=== PATIENT | male | born 1960 | race American Indian/Alaskan Native ===

== ENCOUNTER 2019-07-09 10:03 | Observation (INO) | payer OTHER ==
[2019-07-09] MEDS ORDERED: ASPIRIN PO ONE (10:10)
[2019-07-09 10:43] LABS: Basophils # (Auto) 0.1 K/mm3 (0.0-0.1); Basophils % (Auto) 0.9 % (0.0-1.8); Eosinophils # (Auto) 0.2 K/mm3 (0.0-0.4); Eosinophils % (Auto) 3.2 % (0.0-4.3); Hematocrit 47.2 % (35.5-45.6); Hemoglobin 16.1 gm/dl (11.8-15.2); Lymphocytes # (Auto) 2.3 K/mm3 (1.2-5.4); Mean Corpuscular HGB Conc 34 % (32-34); Mean Corpuscular Volume 95 fl (84-94); Monocytes # (Auto) 0.6 K/mm3 (0.0-0.8); Monocytes % (Auto) 8.1 % (0.0-7.3); Platelet Count 213 K/mm3 (140-440); Red Blood Count 4.95 M/mm3 (3.65-5.03); Red Cell Distribution Width 14.9 % (13.2-15.2)
--- NOTE | 2019-07-09 10:51 | XRay Report ---
CHEST 2 VIEWS INDICATION: Chest Pain. COMPARISON: None FINDINGS: Support devices: None. Heart: Within normal limits. The aorta is mildly ectatic but well defined. Lungs/pleura: No acute air space or interstitial disease. No pneumothorax. Additional findings: None. IMPRESSION: No acute findings. Signer Name: Jackson Gutierrez Jr, MD Signed: 07/09/2019 10:47 AM Workstation Name: [id number]
--- NOTE | 2019-07-09 10:52 | Emergency Department Report ---
ED Chest Pain HPI - General Chief Complaint: Chest Pain Stated Complaint: CHEST PAIN Time Seen by Provider: 07/09/19 10:34 Source: patient, EMS Mode of arrival: Wheelchair Limitations: No Limitations - History of Present Illness Initial Comments: 59-year-old male presents to the emergency department from home with complaint of some midsternal chest discomfort that has been going on since he woke up this morning around 5 AM. The pain worsens when he is moving or breathing. He denies any fever, nausea, vomiting, back pain or diaphoresis. He is a tobacco smoker but denies any illicit drug use. He has a past medical history of asthma, hypertension and migraine headaches. Patient has been out of his blood pressure medication for multiple months and presents with extremely elevated blood pressure. He says that he previously was on something that "started with a I." He does not have a primary care physician. No recent trave l or sick contacts at home. - Related Data Previous Rx's Medication Instructions Recorded Last Taken Type Aspirin [Aspirin BABY CHEW TAB] 81 mg PO QDAY #30 tab.chew 03/09/15 07/08/19 Rx Lisinopril [Zestril TAB] 20 mg PO QDAY #30 tablet 03/09/15 07/08/19 Rx Metoprolol [Lopressor TAB] 12.5 mg PO BID #60 tablet 03/09/15 07/08/19 Rx amLODIPine [Norvasc] 5 mg PO QDAY #30 tablet 03/09/15 07/08/19 Rx Amlodipine Besylate [Norvasc] 5 mg PO DAILY #30 tablet 10/31/18 07/08/19 Rx Clindamycin [Clindamycin CAP] 300 mg PO Q8H 7 Days cap 10/31/18 07/08/19 Rx HYDROcodone/APAP 5-325 [[place] 1 each PO Q4HR PRN #12 tablet 10/31/18 07/08/19 Rx 5/325] Ibuprofen [Motrin] 800 mg PO Q8HR PRN #20 tablet 10/31/18 07/08/19 Rx Allergies Allergy/AdvReac Type Severity Reaction Status Date / Time No Known Allergies Allergy Unverified 03/08/15 11:59 Heart Score - HEART Score History: Slightly suspicious EKG: Non-specific Age: 45-65 Risk factors: 1-2 risk factors Troponin: < normal limit HEART Score: 3 - Critical Actions Critical Actions: 0-3 pts:0.9-1.7%risk of adverse cardiac event.Candidate for discharge ED Review of Systems ROS: Stated complaint: CHEST PAIN Other details as noted in HPI Comment: All other systems reviewed and negative Constitutional: denies: chills, fever Eyes: denies: eye pain, vision change ENT: denies: ear pain, throat pain Respiratory: shortness of breath. denies: cough Cardiovascular: chest pain. denies: palpitations Gastrointestinal: denies: abdominal pain, vomiting Genitourinary: denies: urgency, dysuria Musculoskeletal: denies: back pain, arthralgia Skin: denies: rash, lesions Neurological: denies: headache, weakness ED Past Medical Hx - Past Medical History Hx Hypertension: Yes Hx Congestive Heart Failure: No Hx Diabetes: No Hx Headaches / Migraines: Yes (noncompliant) Hx Asthma: No Hx COPD: No - Surgical History Past Surgical History?: No - Social History Smoking Status: Current Every Day Smoker Substance Use Type: Marijuana - Medications Home Medications: Home Medications Medication Instructions Recorded Confirmed Last Taken Type Aspirin [Aspirin BABY CHEW TAB] 81 mg PO QDAY #30 tab.chew 03/09/15 07/09/19 07/08/19 Rx Lisinopril [Zestril TAB] 20 mg PO QDAY #30 tablet 03/09/15 07/09/19 07/08/19 Rx Metoprolol [Lopressor TAB] 12.5 mg PO BID #60 tablet 03/09/15 07/09/19 07/08/19 Rx amLODIPine [Norvasc] 5 mg PO QDAY #30 tablet 03/09/15 07/09/19 07/08/19 Rx Amlodipine Besylate [Norvasc] 5 mg PO DAILY #30 tablet 10/31/18 07/09/19 07/08/19 Rx Clindamycin [Clindamycin CAP] 300 mg PO Q8H 7 Days cap 10/31/18 07/09/19 07/08/19 Rx HYDROcodone/APAP 5-325 [[place] 1 each PO Q4HR PRN #12 tablet 10/31/18 07/09/19 07/08/19 Rx 5/325] Ibuprofen [Motrin] 800 mg PO Q8HR PRN #20 tablet 10/31/18 07/09/19 07/08/19 Rx ED Physical Exam - General Limitations: No Limitations - Other Other exam information: GENERAL: The patient is well-developed well-nourished. HENT: Normocephalic. Atraumatic. Patient has moist mucous membranes. EYES: Extraocular motions are intact. NECK: Supple. Trachea is midline. CHEST/LUNGS: Clear to auscultation. There is no respiratory distress noted. There is reproducible chest pain to palpation along the midsternal chest wall. No crepitus or deformity. HEART/CARDIOVASCULAR: Regular. There is no tachycardia. There is no murmur. ABDOMEN: Abdomen is soft, nontender. Patient has normal bowel sounds. There is no abdominal distention. SKIN: Skin is warm and dry. NEURO: The patient is awake, alert, and oriented. The patient is cooperative. The patient has no focal neurologic deficits. Normal speech. MUSCULOSKELETAL: There is no tenderness or deformity. There is no evidence of acute injury. ED Course Vital Signs 07/09/19 07/09/19 07/09/19 10:09 10:30 11:31 Temperature 97.8 F Pulse Rate 58 L 58 L 58 L Respiratory 18 16 Rate Blood Pressure 201/129 192/112 Blood Pressure 192/112 [Right] O2 Sat by Pulse 95 Oximetry 07/09/19 07/09/19 07/09/19 11:46 11:51 12:31 Temperature Pulse Rate 69 Respiratory 20 Rate Blood Pressure 169/101 Blood Pressure 169/101 183/87 [Right] O2 Sat by Pulse Oximetry GWEN score - Gwen Score Age > 65: (0) No Aspirin use within the Past 7 Days: (0) No 3 or more CAD Risk Factors: (0) No 2 or more Angina events in past 24 hrs: (1) Yes Known CAD with more than 50% Stenosis: (0) No Elevated Cardiac Markers: (0) No ST Deviation Greater than 0.5mm: (0) No GWEN Score: 1 ED Medical Decision Making - Lab Data Result diagrams: 07/09/19 10:29 07/09/19 10:29 - EKG Data -: EKG Interpreted by Wy EKG shows normal: sinus rhythm, axis, intervals, QRS complexes, ST-T waves (T- wave inversions to the inferior and lateral leads) Rate: bradycardia (56 bpm) - EKG Data When compared to previous EKG there are: no significant change Interpretation: unchanged when compared t (05/08/11) - Radiology Data Radiology results: image reviewed interpreted by me: Chest x-ray does not show any acute process. There are no pleural effusions, obvious pneumonia and there is no pneumothorax. - Medical Decision Making Patient woke up this morning with some midsternal chest pain. He also presents with extremely elevated blood pressure with a history of medication n oncompliance. An EKG was done that shows some T-wave inversions to the inferior and lateral leads but they're unchanged from previous. Chest x-ray did not show any acute process. Patient was given morphine, sublingual nitroglycerin, multiple doses of hydralazine. There was some improvement in the blood pressure but not much improvement in the patient's discomfort. He has a heart score of 3. He does not have any primary care physician or establish follow-up. The patient will be admitted to the hospital for further evaluation and treatment and was accepted for admission by the hospitalist, Dr. Xiao. - Differential Diagnosis VA, PE, Costochondritis, Pneumonia Critical Care Time: No Critical care attestation.: If time is entered above; I have spent that time in minutes in the direct care of this critically ill patient, excluding procedure time. ED Disposition Clinical Impression: Acute chest pain, Uncontrolled hypertension, Noncompliance with medication regimen, Acute kidney insufficiency Disposition: OP ADMIT IP TO THIS HOSP Is pt being admited?: Yes Condition: Fair Time of Disposition: 12:36
[2019-07-09] MEDS ORDERED: APRESOLINE IV ONE ×2 (10:53→11:42)
[2019-07-09 11:03] LABS: INR 1.01 (0.87-1.13); Partial Thromboplastin Time 28.1 Sec. (24.2-36.6)
[2019-07-09 11:04] LABS: BUN/Creatinine Ratio 11; Blood Urea Nitrogen 19 mg/dL (9-20); Hemolysis Index 31
[2019-07-09] MEDS ORDERED: MORPHINE IV ONE (11:16)
[2019-07-09] MEDS ORDERED: NITROSTAT SL PRN (12:31)
[2019-07-10] MEDS ORDERED: ZOFRAN IV PRN (00:10)
[2019-07-10] MEDS ORDERED: TYLENOL PO PRN (00:10)
[2019-07-10] MEDS ORDERED: REGLAN IV PRN (00:10)
[2019-07-10] MEDS ORDERED: DILAUDID IV PRN (00:10)
[2019-07-10] MEDS ORDERED: SODIUM CHLORIDE FLUSH SYRINGE 10 ML IV PRN (00:10)
--- NOTE | 2019-07-10 00:10 | History and Physical Report ---
History of Present Illness Date of examination: 07/09/19 Date of admission: 07/09/19 12:36 Chief complaint: Chest pain since 5 AM History of present illness: 59-year-old male with history of hypertension and arthritis comes in for left- sided chest pain since 5 AM. The pain worsens with movement. Chest pain is about 6 on a scale of 1-10. No diaphoresis. No palpitations. Patient also has asthma. Patient has not been taking his blood pressure medications for many months because of not having a PCP. Noncompliant. Chest pain is dull in character. No radiation. No exacerbating or relieving factors. Heart score is 3 Past Medical History Hypertension: Yes Headaches / Migraines: Yes (noncompliant) Surgical History Past Surgical History?: No Social History Smoking Status: Current Every Day Smoker Substance Use Type: Marijuana Family history htn - Medications Home Medications: Home Medications Medication Instructions Recorded Confirmed Last Taken Type Aspirin [Aspirin BABY CHEW TAB] 81 mg PO QDAY #30 tab.chew 03/09/15 07/09/19 07/08/19 Rx Lisinopril [Zestril TAB] 20 mg PO QDAY #30 tablet 03/09/15 07/09/19 07/08/19 Rx Metoprolol [Lopressor TAB] 12.5 mg PO BID #60 tablet 03/09/15 07/09/19 07/08/19 Rx amLODIPine [Norvasc] 5 mg PO QDAY #30 tablet 03/09/15 07/09/19 07/08/19 Rx Amlodipine Besylate [Norvasc] 5 mg PO DAILY #30 tablet 10/31/18 07/09/19 07/08/19 Rx Clindamycin [Clindamycin CAP] 300 mg PO Q8H 7 Days cap 10/31/18 07/09/19 07/08/19 Rx HYDROcodone/APAP 5-325 [[place] 1 each PO Q4HR PRN #12 tablet 10/31/18 07/09/19 07/08/19 Rx 5/325] Ibuprofen [Motrin] 800 mg PO Q8HR PRN #20 tablet 10/31/18 07/09/19 07/08/19 Rx Review of Systems ROS: Stated complaint: CHEST PAIN Other details as noted in HPI Comment: All other systems reviewed and negative Constitutional: denies: chills, fever Eyes: denies: eye pain, vision change ENT: denies: ear pain, throat pain Respiratory: shortness of breath. denies: cough Cardiovascular: chest pain. denies: palpitations Gastrointestinal: denies: abdominal pain, vomiting Genitourinary: denies: urgency, dysuria Musculoskeletal: denies: back pain, arthralgia Skin: denies: rash, lesions Neurological: denies: headache, weakness Medications and Allergies Allergies Allergy/AdvReac Type Severity Reaction Status Date / Time No Known Allergies Allergy Unverified 03/08/15 11:59 Home Medications Medication Instructions Recorded Confirmed Last Taken Type Aspirin [Aspirin BABY CHEW TAB] 81 mg PO QDAY #30 tab.chew 03/09/15 07/09/19 07/08/19 Rx Lisinopril [Zestril TAB] 20 mg PO QDAY #30 tablet 03/09/15 07/09/19 07/08/19 Rx Metoprolol [Lopressor TAB] 12.5 mg PO BID #60 tablet 03/09/15 07/09/19 07/08/19 Rx amLODIPine [Norvasc] 5 mg PO QDAY #30 tablet 03/09/15 07/09/19 07/08/19 Rx Amlodipine Besylate [Norvasc] 5 mg PO DAILY #30 tablet 10/31/18 07/09/19 07/08/19 Rx Clindamycin [Clindamycin CAP] 300 mg PO Q8H 7 Days cap 10/31/18 07/09/19 07/08/19 Rx HYDROcodone/APAP 5-325 [[place] 1 each PO Q4HR PRN #12 tablet 10/31/18 07/09/19 07/08/19 Rx 5/325] Ibuprofen [Motrin] 800 mg PO Q8HR PRN #20 tablet 10/31/18 07/09/19 07/08/19 Rx Active Meds: Active Medications Nitroglycerin (Nitrostat) 0.4 mg SL .Q5MIN PRN PRN Reason: Chest Pain Exam - Constitutional Vitals: Temp Pulse Resp BP Pulse Ox 98.9 F 60 18 177/99 98 07/09/19 21:59 07/09/19 21:59 07/09/19 21:59 07/09/19 21:59 07/09/19 21:03 General appearance: Present: no acute distress, well-nourished - EENT Eyes: Present: PERRL ENT: hearing intact, clear oral mucosa - Neck Neck: Present: supple, normal ROM - Respiratory Respiratory effort: normal Respiratory: bilateral: CTA - Cardiovascular Heart rate: 54 Rhythm: regular Heart Sounds: Present: S1 & S2. Absent: rub, click - Extremities Extremities: no ischemia, pulses intact, pulses symmetrical, No edema Peripheral Pulses: within normal limits - Abdominal General gastrointestinal: Present: soft, non-tender, non-distended, normal bowel sounds Male genitourinary: Present: normal - Integumentary Integumentary: Present: clear, warm, dry - Musculoskeletal Musculoskeletal: gait normal, strength equal bilaterally - Psychiatric Psychiatric: appropriate mood/affect, intact judgment & insight - Neurologic Neurologic: CNII-XII intact, moves all extremities - Allied Health Allied health notes reviewed: nursing, case management Results - Labs CBC & Chem 7: 07/09/19 10:29 07/09/19 10:29 Labs: Laboratory Last Values WBC 7.0 K/mm3 (4.5-11.0) 07/09/19 10:29 RBC 4.95 M/mm3 (3.65-5.03) 07/09/19 10:29 Hgb 16.1 gm/dl (11.8-15.2) H 07/09/19 10:29 Hct 47.2 % (35.5-45.6) H 07/09/19 10:29 MCV 95 fl (84-94) H 07/09/19 10:29 MCH 33 pg (28-32) H 07/09/19 10:29 MCHC 34 % (32-34) 07/09/19 10:29 RDW 14.9 % (13.2-15.2) 07/09/19 10:29 Plt Count 213 K/mm3 (140-440) 07/09/19 10:29 Lymph % (Auto) 33.0 % (13.4-35.0) 07/09/19 10:29 [place] % (Auto) 8.1 % (0.0-7.3) H 07/09/19 10:29 Eos % (Auto) 3.2 % (0.0-4.3) 07/09/19 10:29 Baso % (Auto) 0.9 % (0.0-1.8) 07/09/19 10:29 Lymph # 2.3 K/mm3 (1.2-5.4) 07/09/19 10:29 [place] # 0.6 K/mm3 (0.0-0.8) 07/09/19 10:29 Eos # 0.2 K/mm3 (0.0-0.4) 07/09/19 10:29 Baso # 0.1 K/mm3 (0.0-0.1) 07/09/19 10:29 Seg Neutrophils % 54.8 % (40.0-70.0) 07/09/19 10:29 Seg Neutrophils # 3.8 K/mm3 (1.8-7.7) 07/09/19 10:29 PT 13.0 Sec. (12.2-14.9) 07/09/19 10:41 INR 1.01 (0.87-1.13) 07/09/19 10:41 APTT 28.1 Sec. (24.2-36.6) 07/09/19 10:41 < 135.00 ng/mlDDU (0-234) 07/09/19 10:41 Sodium 142 mmol/L (137-145) 07/09/19 10:29 Potassium 3.7 mmol/L (3.6-5.0) 07/09/19 10:29 Chloride 104.9 mmol/L (98-107) 07/09/19 10:29 Carbon Dioxide 24 mmol/L (22-30) 07/09/19 10:29 17 mmol/L 07/09/19 10:29 BUN 19 mg/dL (9-20) 07/09/19 10:29 1.7 mg/dL (0.8-1.5) H 07/09/19 10:29 Estimated GFR 51 ml/min 07/09/19 10:29 11 % 07/09/19 10:29 Glucose 103 mg/dL (75-100) H 07/09/19 10:29 Calcium 9.0 mg/dL (8.4-10.2) 07/09/19 10:29 < 0.010 ng/mL (0.00-0.029) 07/09/19 15:11 Short CBC 07/09/19 Range/Units 10:29 WBC 7.0 (4.5-11.0) K/mm3 Hgb 16.1 H (11.8-15.2) gm/dl Hct 47.2 H (35.5-45.6) % Plt Count 213 (140-440) K/mm3 [facility] 07/09/19 10:29 Sodium 142 Potassium 3.7 Chloride 104.9 Carbon Dioxide 24 BUN 19 Creatinine 1.7 H Glucose 103 H Calcium 9.0 Cardiac Enzymes 07/09/19 07/09/19 07/09/19 Range/Units 10:29 13:49 15:11 Troponin T < 0.010 < 0.010 < 0.010 (0.00-0.029) ng/mL - Imaging and Cardiology EKG: report reviewed (sinus bradycardia heart rate of 50 for per minute, LVH by voltage criteria) Chest x-ray: report reviewed (no acute findings) Assessment and Plan Advance Directives: Yes (full code) VTE prophylaxis?: Chemical Plan of care discussed with patient/family: Yes - Patient Problems (1) Acute chest pain Current Visit: Yes Status: Acute Plan to address problem: Serial troponins Exercise stress test Cardiology consult (2) Hypertension Current Visit: Yes Status: Chronic Qualifiers: Hypertension type: essential hypertension Qualified Code(s): I10 - Essential (primary) hypertension Plan to address problem: Patient counseled about compliance Patient to be given 3 month prescriptions at the time of discharge Patient to follow-up with [facility] --- a free clinic in the community (3) Nicotine dependence Current Visit: Yes Status: Chronic Qualifiers: Nicotine product type: cigarettes Plan to address problem: Patient counseled about stopping smoking NicoDerm patch initiated (4) DVT prophylaxis Current Visit: Yes Status: Acute Plan to address problem: On Lovenox and GI prophylaxis
[2019-07-10] MEDS ORDERED: APRESOLINE IV PRN (00:22)
[2019-07-10] MEDS ORDERED: HABITROL TD ONE (00:23)
[2019-07-10] MEDS: LOPRESSOR PO SCH ×3 (06:15→22:00)
[2019-07-10] MEDS ORDERED: LEXISCAN IV ONE ×2 (09:00→09:20)
[2019-07-10] MEDS: APRESOLINE PO SCH ×3 (09:11→22:00)
[2019-07-10] MEDS: NORVASC PO SCH (11:21)
[2019-07-10] MEDS: PERCOCET 5/325 PO PRN ×2 (11:36→19:22)
[2019-07-10] MEDS: PEPCID PO SCH ×2 (11:37→22:00)
[2019-07-10] MEDS: BABY ASPIRIN PO SCH (11:37)
[2019-07-10] MEDS: ZESTRIL PO SCH (11:38)
--- NOTE | 2019-07-10 15:34 | Progress Note ---
Assessment and Plan Assessment and plan: (1) Acute chest pain Current Visit: Yes Status: Acute Plan to address problem: Serial troponins, negative Exercise stress test Cardiology consult (2) Hypertension - Uncontrolled - Added hydralazine - Will monitor (3) Nicotine dependence - counselled about cessation of smoking - Patient declined Nicoderm patch Asthma - PRN breathing treatment and o2 support (4) DVT prophylaxis On Lovenox and GI prophylaxis Disposition; will DC once BP is controlled and stress test report. History Interval history: Patient was seen and evaluated this morning, patient is complaining some shortness of breath. Chest pain resolved. Hospitalist Physical - Physical exam Narrative exam: Not in cardiopulmonary distress. The patient is obese. Vital signs as documented. Head exam is unremarkable. No scleral icterus . Neck is without jugular venous distension, thyromegaly, or carotid bruits. Lungs are clear to auscultation. Cardiac exam reveals regular rate and Rhythm. Abdominal exam reveals normal bowel sounds, no masses, no organomegaly and no aortic enlargement. Extremities are nonedematous and both femoral and pedal pulses are normal. EXHIBITS CURATOR: Alert and oriented 3. No focal weakness. - Constitutional Vitals: Temp Pulse Resp BP Pulse Ox 98.4 F 63 20 171/95 98 07/10/19 07:54 07/10/19 13:27 07/10/19 11:36 07/10/19 10:46 07/10/19 13:00 General appearance: Present: no acute distress, well-nourished Results - Labs CBC & Chem 7: 07/09/19 10:29 07/09/19 10:29 Labs: Laboratory Last Values WBC 7.0 K/mm3 (4.5-11.0) 07/09/19 10:29 RBC 4.95 M/mm3 (3.65-5.03) 07/09/19 10:29 Hgb 16.1 gm/dl (11.8-15.2) H 07/09/19 10:29 Hct 47.2 % (35.5-45.6) H 07/09/19 10:29 MCV 95 fl (84-94) H 07/09/19 10:29 MCH 33 pg (28-32) H 07/09/19 10:29 MCHC 34 % (32-34) 07/09/19 10:29 RDW 14.9 % (13.2-15.2) 07/09/19 10:29 Plt Count 213 K/mm3 (140-440) 07/09/19 10:29 Lymph % (Auto) 33.0 % (13.4-35.0) 07/09/19 10:29 [place] % (Auto) 8.1 % (0.0-7.3) H 07/09/19 10:29 Eos % (Auto) 3.2 % (0.0-4.3) 07/09/19 10:29 Baso % (Auto) 0.9 % (0.0-1.8) 07/09/19 10:29 Lymph # 2.3 K/mm3 (1.2-5.4) 07/09/19 10:29 [place] # 0.6 K/mm3 (0.0-0.8) 07/09/19 10:29 Eos # 0.2 K/mm3 (0.0-0.4) 07/09/19 10:29 Baso # 0.1 K/mm3 (0.0-0.1) 07/09/19 10:29 Seg Neutrophils % 54.8 % (40.0-70.0) 07/09/19 10:29 Seg Neutrophils # 3.8 K/mm3 (1.8-7.7) 07/09/19 10:29 PT 13.0 Sec. (12.2-14.9) 07/09/19 10:41 INR 1.01 (0.87-1.13) 07/09/19 10:41 APTT 28.1 Sec. (24.2-36.6) 07/09/19 10:41 < 135.00 ng/mlDDU (0-234) 07/09/19 10:41 Sodium 142 mmol/L (137-145) 07/09/19 10:29 Potassium 3.7 mmol/L (3.6-5.0) 07/09/19 10:29 Chloride 104.9 mmol/L (98-107) 07/09/19 10:29 Carbon Dioxide 24 mmol/L (22-30) 07/09/19 10:29 17 mmol/L 07/09/19 10:29 BUN 19 mg/dL (9-20) 07/09/19 10:29 1.7 mg/dL (0.8-1.5) H 07/09/19 10:29 Estimated GFR 51 ml/min 07/09/19 10:29 11 % 07/09/19 10:29 Glucose 103 mg/dL (75-100) H 07/09/19 10:29 5.5 % (4-6) 07/10/19 00:21 Calcium 9.0 mg/dL (8.4-10.2) 07/09/19 10:29 < 0.010 ng/mL (0.00-0.029) 07/10/19 05:40 Active Medications - Current Medications Current Medications: Generic Name Dose Route Start Last Admin Trade Name Freq PRN Reason Stop Dose Admin Acetaminophen 650 mg 07/10/19 00:10 Tylenol PO Q4H PRN Pain MILD(1-3)/Fever >100.5/JARVIS Amlodipine Besylate 10 mg 07/10/19 10:00 Norvasc PO QDAY EMIL Aspirin 81 mg 07/10/19 10:00 07/10/19 11:37 Baby Aspirin PO 81 mg QDAY EMIL Administration Enoxaparin Sodium 40 mg 07/10/19 22:00 Lovenox SUB-Q QDAY@2200 EMIL Famotidine 20 mg 07/10/19 10:00 07/10/19 11:37 Pepcid PO 20 mg BID EMIL Administration Hydralazine HCl 10 mg 07/10/19 00:22 07/10/19 08:21 Apresoline IV 10 mg Q3H PRN Administration Blood Pressure Hydralazine HCl 100 mg 07/10/19 09:00 07/10/19 14:37 Apresoline PO 100 mg TID EMIL Administration Hydromorphone HCl 0.5 mg 07/10/19 00:10 Dilaudid IV Q3H PRN Pain , Severe (7-10) Lisinopril 20 mg 07/10/19 10:00 07/10/19 11:38 Zestril PO 20 mg QDAY EMIL Administration Metoclopramide HCl 10 mg 07/10/19 00:10 Reglan IV Q6H PRN Nausea And Vomiting Metoprolol Tartrate 12.5 mg 07/10/19 01:00 07/10/19 11:37 Lopressor PO 12.5 mg BID EMIL Administration Nitroglycerin 0.4 mg 07/09/19 12:31 Nitrostat SL .Q5MIN PRN Chest Pain Ondansetron HCl 4 mg 07/10/19 00:10 Zofran IV Q8H PRN Nausea And Vomiting Oxycodone/Acetaminophen 1 tab 07/10/19 00:10 07/10/19 11:36 Percocet 5/325 PO 1 tab Q6H PRN Administration Pain, Moderate (4-6) Sodium Chloride 10 ml 07/10/19 10:00 Sodium Chloride Flush Syringe 10 Ml IV BID EMIL Sodium Chloride 10 ml 07/10/19 00:10 Sodium Chloride Flush Syringe 10 Ml IV PRN PRN LINE FLUSH
--- NOTE | 2019-07-10 16:28 | Consultation ---
History of Present Illness Consult date: 07/10/19 Consult reason: chest pain History of present illness: 59 year old male presenting with chest pain, left sided and non-exertional. BP on admission > 200. Patient admits non-compliance with med therapy. Troponin are negative and ECG consistent with LVH and repolarization abnormality. Past History Past Medical History: hypertension Medications and Allergies Allergies Allergy/AdvReac Type Severity Reaction Status Date / Time No Known Allergies Allergy Unverified 03/08/15 11:59 Home Medications Medication Instructions Recorded Confirmed Last Taken Type Aspirin [Aspirin BABY CHEW TAB] 81 mg PO QDAY #30 tab.chew 03/09/15 07/09/19 07/08/19 Rx Lisinopril [Zestril TAB] 20 mg PO QDAY #30 tablet 03/09/15 07/09/19 07/08/19 Rx Metoprolol [Lopressor TAB] 12.5 mg PO BID #60 tablet 03/09/15 07/09/19 07/08/19 Rx amLODIPine [Norvasc] 5 mg PO QDAY #30 tablet 03/09/15 07/09/19 07/08/19 Rx Amlodipine Besylate [Norvasc] 5 mg PO DAILY #30 tablet 10/31/18 07/09/19 07/08/19 Rx Clindamycin [Clindamycin CAP] 300 mg PO Q8H 7 Days cap 10/31/18 07/09/19 07/08/19 Rx HYDROcodone/APAP 5-325 [[place] 1 each PO Q4HR PRN #12 tablet 10/31/18 07/09/19 07/08/19 Rx 5/325] Ibuprofen [Motrin] 800 mg PO Q8HR PRN #20 tablet 10/31/18 07/09/19 07/08/19 Rx Active Meds: Active Medications Acetaminophen (Tylenol) 650 mg PO Q4H PRN PRN Reason: Pain MILD(1-3)/Fever >100.5/JARVIS Amlodipine Besylate (Norvasc) 10 mg PO QDAY [facility] Aspirin (Baby Aspirin) 81 mg PO QDAY [facility] Last Admin: 07/10/19 11:37 Dose: 81 mg Documented by: Enoxaparin Sodium (Lovenox) 40 mg SUB-Q QDAY@2200 [facility] Famotidine (Pepcid) 20 mg PO BID [facility] Last Admin: 07/10/19 11:37 Dose: 20 mg Documented by: Hydralazine HCl (Apresoline) 10 mg IV Q3H PRN PRN Reason: Blood Pressure Last Admin: 07/10/19 08:21 Dose: 10 mg Documented by: Hydralazine HCl (Apresoline) 100 mg PO TID [facility] Last Admin: 07/10/19 14:37 Dose: 100 mg Documented by: Hydromorphone HCl (Dilaudid) 0.5 mg IV Q3H PRN PRN Reason: Pain , Severe (7-10) Lisinopril (Zestril) 20 mg PO QDAY [facility] Last Admin: 07/10/19 11:38 Dose: 20 mg Documented by: Metoclopramide HCl (Reglan) 10 mg IV Q6H PRN PRN Reason: Nausea And Vomiting Metoprolol Tartrate (Lopressor) 12.5 mg PO BID [facility] Last Admin: 07/10/19 11:37 Dose: 12.5 mg Documented by: Nitroglycerin (Nitrostat) 0.4 mg SL .Q5MIN PRN PRN Reason: Chest Pain Ondansetron HCl (Zofran) 4 mg IV Q8H PRN PRN Reason: Nausea And Vomiting Oxycodone/Acetaminophen (Percocet 5/325) 1 tab PO Q6H PRN PRN Reason: Pain, Moderate (4-6) Last Admin: 07/10/19 11:36 Dose: 1 tab Documented by: Sodium Chloride (Sodium Chloride Flush Syringe 10 Ml) 10 ml IV BID [facility] Sodium Chloride (Sodium Chloride Flush Syringe 10 Ml) 10 ml IV PRN PRN PRN Reason: LINE FLUSH Review of Systems All systems: negative Physical Examination Vital Signs Temp Pulse Resp BP Pulse Ox 97.8 F 58 L 18 201/129 95 07/09/19 10:09 07/09/19 10:09 07/09/19 10:09 07/09/19 10:09 07/09/19 10:09 General appearance: no acute distress HEENT: Positive: PERRL Neck: Positive: neck supple Cardiac: Positive: Reg Rate and Rhythm Lungs: Positive: Normal Exam Neuro: Positive: Grossly Intact Abdomen: Positive: Soft Male genitourinary: Positive: normal Extremities: Present: normal Results 07/09/19 10:29 07/09/19 10:29 - EKG Interpretation EKG: sinus rhythm EKG interpretations - Telemetry EKG Rhythm: Sinus Rhythm Assessment and Plan Atypical chest pain MPI this admission showing no ischemia Uncontrolled systemic Hypertension Abnormal ECG Chronic renal failure Non-compliance Recommendations: Afterload reduction No further cardiac work-up is needed
[2019-07-10] MEDS ORDERED: LOVENOX SUB-Q SCH (22:00)
[2019-07-10] MEDS: SODIUM CHLORIDE FLUSH SYRINGE 10 ML IV SCH (22:02)
--- NOTE | 2019-07-11 05:00 | Treadmill Report ---
ORDERING PHYSICIAN: Dr. Alarcon. INDICATION: Chest pain. FINDINGS: There is no scintigraphic evidence of myocardial ischemia. The left ventricle is normal in size and systolic function. The left ventricular ejection fraction is measured at 55%, with normal wall motion. CONCLUSION: Normal perfusion scan. JOB# [id number] ISIS/NTS
[2019-07-11 07:14] LABS: Albumin 3.6 g/dL (3.9-5)
[2019-07-11] MEDS: SODIUM CHLORIDE FLUSH SYRINGE 10 ML IV SCH ×2 (08:04→09:02)
[2019-07-11] MEDS: APRESOLINE PO SCH (08:51)
[2019-07-11] MEDS: PEPCID PO SCH (09:00)
[2019-07-11] MEDS: LOPRESSOR PO SCH (09:00)
[2019-07-11] MEDS: BABY ASPIRIN PO SCH (09:01)
[2019-07-11] MEDS: NORVASC PO SCH (09:01)
[2019-07-11 09:02] VITALS: BP 135/63
[2019-07-11] MEDS: ZESTRIL PO SCH (09:02)
[2019-07-11] MEDS ORDERED: K-DUR PO ONE (09:47)
--- NOTE | 2019-07-11 09:53 | Discharge Summary ---
Providers - Providers Date of Admission: 07/09/19 12:36 Date of discharge: 07/11/19 Attending physician: SANDOVAL CONNER MD 07/10/19 00:10 Consult to Physician [CONS] Routine Comment: Consulting Provider: JOVANI CREWS Physician Instructions: Reason For Exam: cHEST PAIN [facility] Reason for admission: chest pain, uncontrolled HTN Condition: Stable Pertinent studies: Stress test negative Hospital course: 59-year-old male with history of hypertension and arthritis comes in for left- sided chest pain since 5 AM. The pain worsens with movement. Chest pain is about 6 on a scale of 1-10. No diaphoresis. No palpitations. Patient also has asthma. Patient has not been taking his blood pressure medications for many months because of not having a PCP. Noncompliant. Chest pain is dull in character. No radiation. No exacerbating or relieving factors. Heart score is 3. patient was not taking his BP medications for a while and his blood pressure was uncontrolled. patient restarted with BP medications and BP was controlled. Stress test was negative. patient was hemodynamically stable at the time of discharge. Disposition: DC-01 TO HOME OR SELFCARE Time spent for discharge: 32 minutes - Discharge Diagnoses (1) Acute chest pain Status: Acute (2) Acute kidney insufficiency Status: Acute (3) Noncompliance with medication regimen Status: Acute (4) Uncontrolled hypertension Status: Acute Core Measure Documentation - Palliative Care Palliative Care/ Comfort Measures: Not Applicable - Core Measures Any of the following diagnoses?: none Exam - Physical Exam Narrative exam: Not in cardiopulmonary distress. The patient is obese. Vital signs as documented. Head exam is unremarkable. No scleral icterus . Neck is without jugular venous distension, thyromegaly, or carotid bruits. Lungs are clear to auscultation. Cardiac exam reveals regular rate and Rhythm. Abdominal exam reveals normal bowel sounds, no masses, no organomegaly and no aortic enlargement. Extremities are nonedematous and both femoral and pedal pulses are normal. 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 No focal weakness. - Constitutional Vitals: Temp Pulse Resp BP Pulse Ox 98.5 F 60 18 135/63 98 07/11/19 04:45 07/11/19 09:02 07/11/19 08:52 07/11/19 09:02 07/11/19 08:52 Plan Activity: no restrictions Weight Bearing Status: Full Weight Bearing Diet: low salt Follow up with: JOVANI CREWS MD [Staff Physician] - 7 Days [facility] KIRSTEN MUÑOZ MD [Primary Care Provider] - 3-5 Days Prescriptions: hydrALAZINE [Apresoline TAB] 100 mg PO TID #90 tab Metoprolol [Lopressor TAB] 12.5 mg PO BID #60 tablet amLODIPine [Norvasc] 10 mg PO DAILY #30 tab Lisinopril [Zestril TAB] 20 mg PO QDAY #30 tablet
--- NOTE | 2019-07-11 09:55 | Progress Note ---
Assessment and Plan Atypical chest pain MPI this admission showing no ischemia Uncontrolled systemic Hypertension: Now improved with current therapy Abnormal ECG Chronic renal failure Non-compliance Recommendations: Continue current medical therapy No further cardiac work-up is needed: Will sign off - please call with questions Objective Vital Signs Temp Pulse Pulse Pulse Resp BP Pulse Ox 07/11/19 09:02 60 135/63 07/11/19 09:01 60 135/63 07/11/19 09:00 60 135/63 07/11/19 08:52 60 60 18 98 07/11/19 08:00 60 07/11/19 04:45 98.5 F 66 18 167/72 97 07/11/19 00:23 98.4 F 64 18 131/59 97 07/11/19 00:00 66 07/10/19 20:00 98.1 F 66 18 158/79 98 07/10/19 19:22 20 07/10/19 17:23 98.0 F 18 121/63 07/10/19 13:27 63 07/10/19 13:10 18 175/82 07/10/19 13:00 98 07/10/19 12:24 98.2 F 18 207/120 07/10/19 11:36 20 07/10/19 10:46 171/95 07/10/19 10:45 156/91 07/10/19 10:43 152/81 07/10/19 10:40 194/104 07/10/19 10:09 185/96 07/10/19 10:05 178/145 - Physical Examination HEENT: Positive: PERRL Neck: Positive: neck supple Neuro: Positive: Grossly Intact Abdomen: Positive: Soft Extremities: Present: normal - Labs and Meds Cardiac Enzymes 07/11/19 Range/Units 05:50 AST 15 (5-40) units/L Comprehensive Metabolic Panel 07/11/19 Range/Units 05:50 Sodium 141 (137-145) mmol/L Potassium 3.4 L (3.6-5.0) mmol/L Chloride 104.8 (98-107) mmol/L Carbon Dioxide 22 (22-30) mmol/L BUN 19 (9-20) mg/dL Creatinine 1.6 H (0.8-1.5) mg/dL Glucose 96 (75-100) mg/dL Calcium 9.0 (8.4-10.2) mg/dL AST 15 (5-40) units/L ALT 14 (7-56) units/L Alkaline Phosphatase 81 (35-129) units/L Total Protein 6.7 (6.3-8.2) g/dL Albumin 3.6 L (3.9-5) g/dL - Imaging and Cardiology EKG: report reviewed (sinus bradycardia heart rate of 50 for per minute, LVH by voltage criteria)
== END 2019-07-11 10:58 | disposition home or self-care (01) ==
LOC: ED 10:03 → 4A 12:36
PROVIDERS: ADMIT Internal Medicine; ATTEND Internal Medicine
DX: R07.89 Other chest pain (principal); N28.9 Disorder of kidney and ureter, unspecified; I10 Essential (primary) hypertension; F17.210 Nicotine dependence, cigarettes, uncomplicated; J45.909 Unspecified asthma, uncomplicated; M19.90 Unspecified osteoarthritis, unspecified site; G43.909 Migraine, unspecified, not intractable, without status migrainosus; Z79.82 Long term (current) use of aspirin; Z91.14 Patient's other noncompliance with medication regimen
CPT/HCPCS: 36415; 71046; 78452; 80048; 80053; 83036; 84484; 85025; 85379; 85610; 85730; 93005; 93010; 93017; 96372; 96374; 96375; 96376; 99284; 99406; A9502; G0378; J0360; J1650; J2270; J2785

== ENCOUNTER 2019-10-06 11:36 | Emergency (ER) | payer OTHER ==
--- NOTE | 2019-10-06 11:52 | Event Note ---
ED Screening Note Date of service: 10/06/19 Time: 11:51 ED Screening Note: 59 y o male with pmh of HTN ran outof meds x 3 days presents cc of dizziness and lightheadedness This initial assessment/diagnostic orders/clinical plan/treatment(s) is/are subject to change based on patients health status, clinical progression and re- assessment by fellow clinical providers in the ED. Further treatment and workup at subsequent clinical providers discretion. Patient/guardian urged not to elope from the ED as their condition may be serious if not clinically assessed and managed. Initial orders include: labs, medicate
[2019-10-06 12:47] LABS: Basophils # (Auto) 0.1 K/mm3 (0.0-0.1); Basophils % (Auto) 1.1 % (0.0-1.8); Eosinophils # (Auto) 0.1 K/mm3 (0.0-0.4); Eosinophils % (Auto) 1.7 % (0.0-4.3); Hematocrit 47.9 % (35.5-45.6); Hemoglobin 15.9 gm/dl (11.8-15.2); Lymphocytes # (Auto) 1.7 K/mm3 (1.2-5.4); Lymphocytes % (Auto) 27.6 % (13.4-35.0); Mean Corpuscular HGB Conc 33 % (32-34); Mean Corpuscular Volume 95 fl (84-94); Monocytes # (Auto) 0.5 K/mm3 (0.0-0.8); Monocytes % (Auto) 8.8 % (0.0-7.3); Platelet Count 221 K/mm3 (140-440); Red Blood Count 5.07 M/mm3 (3.65-5.03); Red Cell Distribution Width 15.5 % (13.2-15.2)
[2019-10-06 13:09] LABS: BUN/Creatinine Ratio 13; Blood Urea Nitrogen 15 mg/dL (9-20); Calcium 9.3 mg/dL (8.4-10.2); Hemolysis Index 17
--- NOTE | 2019-10-06 13:49 | Emergency Department Report ---
ED General Adult HPI - General Chief complaint: Medical Clearance Stated complaint: HBP/OUT OF MEDS Time Seen by Provider: 10/06/19 13:03 Source: patient Mode of arrival: Ambulatory Limitations: No Limitations - History of Present Illness Initial comments: Patient to the emergency department for elevated blood pressures. Patient denies chest pain, shortness breath, or abdominal. She states he's been out of his blood pressure medications for approximately 2 weeks. -: Sudden Severity scale (0 -10): 0 Consistency: constant Improves with: none Worsens with: none Associated Symptoms: denies other symptoms Treatments Prior to Arrival: none - Related Data Previous Rx's Medication Instructions Recorded Last Taken Type Aspirin [Aspirin BABY CHEW TAB] 81 mg PO QDAY #30 tab.chew 03/09/15 07/08/19 Rx HYDROcodone/APAP 5-325 [[place] 1 each PO Q4HR PRN #12 tablet 10/31/18 07/08/19 Rx 5-325 mg TAB] Lisinopril [Zestril TAB] 20 mg PO QDAY #30 tablet 07/11/19 Unknown Rx Metoprolol [Lopressor TAB] 12.5 mg PO BID #60 tablet 07/11/19 Unknown Rx amLODIPine 10 mg PO DAILY #30 tab 07/11/19 Unknown Rx hydrALAZINE [Apresoline TAB] 100 mg PO TID #90 tab 07/11/19 Unknown Rx amLODIPine [Norvasc] 10 mg PO DAILY #30 tab 10/06/19 Unknown Rx hydroCHLOROthiazide [Hctz] 12.5 mg PO QDAY #30 capsule 10/06/19 Unknown Rx Allergies Allergy/AdvReac Type Severity Reaction Status Date / Time No Known Allergies Allergy Unverified 03/08/15 11:59 ED Review of Systems ROS: Stated complaint: HBP/OUT OF MEDS Other details as noted in HPI Comment: All other systems reviewed and negative Constitutional: denies: chills, fever Eyes: denies: eye pain, eye discharge, vision change ENT: denies: ear pain, throat pain Respiratory: denies: cough, shortness of breath, wheezing Cardiovascular: denies: chest pain, palpitations Endocrine: no symptoms reported Gastrointestinal: denies: abdominal pain, nausea, diarrhea Genitourinary: denies: urgency, dysuria Musculoskeletal: denies: back pain, joint swelling, arthralgia Skin: denies: rash, lesions Neurological: denies: headache, weakness, paresthesias Psychiatric: denies: anxiety, depression Hematological/Lymphatic: denies: easy bleeding, easy bruising ED Past Medical Hx - Past Medical History Previous Medical History?: Yes Hx Hypertension: Yes Hx Congestive Heart Failure: No Hx Diabetes: No Hx Headaches / Migraines: Yes Hx Asthma: No Hx COPD: No Hx HIV: No - Surgical History Past Surgical History?: No - Social History Smoking Status: Current Every Day Smoker Substance Use Type: Alcohol - Medications Home Medications: Home Medications Medication Instructions Recorded Confirmed Last Taken Type Aspirin [Aspirin BABY CHEW TAB] 81 mg PO QDAY #30 tab.chew 03/09/15 07/09/19 07/08/19 Rx HYDROcodone/APAP 5-325 [[place] 1 each PO Q4HR PRN #12 tablet 10/31/18 07/09/19 07/08/19 Rx 5-325 mg TAB] Lisinopril [Zestril TAB] 20 mg PO QDAY #30 tablet 07/11/19 Unknown Rx Metoprolol [Lopressor TAB] 12.5 mg PO BID #60 tablet 07/11/19 Unknown Rx amLODIPine 10 mg PO DAILY #30 tab 07/11/19 Unknown Rx hydrALAZINE [Apresoline TAB] 100 mg PO TID #90 tab 07/11/19 Unknown Rx amLODIPine [Norvasc] 10 mg PO DAILY #30 tab 10/06/19 Unknown Rx hydroCHLOROthiazide [Hctz] 12.5 mg PO QDAY #30 capsule 10/06/19 Unknown Rx ED Physical Exam - General Limitations: No Limitations General appearance: alert, in no apparent distress - Head Head exam: Present: atraumatic, normocephalic - Eye Eye exam: Present: normal appearance, PERRL, EOMI - ENT ENT exam: Present: mucous membranes moist - Neck Neck exam: Present: normal inspection - Respiratory Respiratory exam: Present: normal lung sounds bilaterally. Absent: respiratory distress - Cardiovascular Cardiovascular Exam: Present: regular rate, normal rhythm. Absent: systolic m urmur, diastolic murmur, rubs, gallop - GI/Abdominal GI/Abdominal exam: Present: soft, normal bowel sounds - Rectal Rectal exam: Present: deferred - Extremities Exam Extremities exam: Present: normal inspection - Back Exam Back exam: Present: normal inspection - Neurological Exam Neurological exam: Present: alert, oriented X3, CN II-XII intact. Absent: motor sensory deficit - Psychiatric Psychiatric exam: Present: normal affect, normal mood - Skin Skin exam: Present: warm, dry, intact, normal color. Absent: rash ED Course Vital Signs 10/06/19 10/06/19 10/06/19 11:47 13:04 13:10 Temperature 98.2 F Pulse Rate 55 L 49 L Respiratory 16 17 Rate Blood Pressure 225/127 Blood Pressure 194/108 [left arm] O2 Sat by Pulse 98 97 Oximetry 10/06/19 13:13 Temperature 98 F Pulse Rate Respiratory Rate Blood Pressure Blood Pressure [left arm] O2 Sat by Pulse Oximetry ED Medical Decision Making - Lab Data Result diagrams: 10/06/19 12:21 10/06/19 12:21 Lab Results 10/06/19 10/06/19 Range/Units 12:21 12:21 WBC 6.1 (4.5-11.0) K/mm3 RBC 5.07 H (3.65-5.03) M/mm3 Hgb 15.9 H (11.8-15.2) gm/dl Hct 47.9 H (35.5-45.6) % MCV 95 H (84-94) fl MCH 31 (28-32) pg MCHC 33 (32-34) % RDW 15.5 H (13.2-15.2) % Plt Count 221 (140-440) K/mm3 Lymph % (Auto) 27.6 (13.4-35.0) % [place] % (Auto) 8.8 H (0.0-7.3) % Eos % (Auto) 1.7 (0.0-4.3) % Baso % (Auto) 1.1 (0.0-1.8) % Lymph # 1.7 (1.2-5.4) K/mm3 [place] # 0.5 (0.0-0.8) K/mm3 Eos # 0.1 (0.0-0.4) K/mm3 Baso # 0.1 (0.0-0.1) K/mm3 Seg Neutrophils % 60.8 (40.0-70.0) % Seg Neutrophils # 3.7 (1.8-7.7) K/mm3 Sodium 142 (137-145) mmol/L Potassium 3.6 (3.6-5.0) mmol/L Chloride 103.7 (98-107) mmol/L Carbon Dioxide 22 (22-30) mmol/L Anion Gap 20 mmol/L BUN 15 (9-20) mg/dL Creatinine 1.2 (0.8-1.5) mg/dL Estimated GFR > 60 ml/min BUN/Creatinine Ratio 13 % Glucose 106 H (75-100) mg/dL Calcium 9.3 (8.4-10.2) mg/dL Troponin T < 0.010 (0.00-0.029) ng/mL NT-Pro-B Natriuret Pep 53.50 (0-900) pg/mL - EKG Data -: EKG Interpreted by Me EKG shows normal: sinus rhythm Rate: bradycardia - Medical Decision Making Patient was not symptomatically with hypertension and laboratory values were ordered prior to me seeing the patient Critical care attestation.: If time is entered above; I have spent that time in minutes in the direct care of this critically ill patient, excluding procedure time. ED Disposition Clinical Impression: Hypertension Disposition: DC-01 TO HOME OR SELFCARE Is pt being admited?: No Does the pt Need Aspirin: No Condition: Stable Instructions: Hypertension (ED) Additional Instructions: return if worse Prescriptions: hydroCHLOROthiazide [Hctz] 12.5 mg PO QDAY #30 capsule Referrals: [facility] [Provider Group] - 3-5 Days [facility] [Provider Group] - 3-[address] [facility] [place] [Outside] - 3-5 Days Time of Disposition: 13:47
[2019-10-06 14:29] VITALS: BP 187/105
== END 2019-10-06 14:28 | disposition home or self-care (01) ==
LOC: ED 11:36
DX: I10 Essential (primary) hypertension (principal); G43.909 Migraine, unspecified, not intractable, without status migrainosus; F17.200 Nicotine dependence, unspecified, uncomplicated; Z79.899 Other long term (current) drug therapy
CPT/HCPCS: 36415; 80048; 83880; 84484; 85025; 93005; 93010

== ENCOUNTER 2021-11-27 05:44 | Observation (INO) | payer BC ==
[2021-11-22 12:45] LABS: Hematocrit 43.8 % (35.5-45.6); Hemoglobin 14.4 gm/dl (11.8-15.2); Mean Corpuscular HGB Conc 33 % (32-34); Mean Corpuscular Volume 90 fl (84-94); Platelet Count 233 K/mm3 (140-440); Red Blood Count 4.85 M/mm3 (3.65-5.03); Red Cell Distribution Width 15.3 % (13.2-15.2)
[2021-11-22 12:59] LABS: Alanine Aminotransferase 30 units/L (7-56); Albumin 4.2 g/dL (3.9-5); BUN/Creatinine Ratio 16; Blood Urea Nitrogen 22 mg/dL (9-20); Calcium 8.9 mg/dL (8.4-10.2); Hemolysis Index 2
--- NOTE | 2021-11-22 13:05 | Anesthesia Consultation ---
Anesthesia Consult and Med Hx Date of service: 11/27/21 - Airway Anesthetic Teeth Evaluation: Crowns ROM Head & Neck: Adequate Mental/Hyoid Distance: Adequate Mallampati Class: Class II Intubation Access Assessment: Good - Pre-Operative Health Status ASA Pre-Surgery Classification: ASA2 Proposed Anesthetic Plan: General Nerve Block: TAP - Pulmonary Hx Smoking: Yes (1/4 PPD SINCE AGE 21YRS) Hx Asthma: No Hx Respiratory Symptoms: No (+2FS) COPD: No Hx Pneumonia: Yes Hx Sleep Apnea: No (CHARBEL PRE SCREEN HIGH RISK) - Cardiovascular System Hx Hypertension: Yes Hx Heart Attack/AMI: No ([id number] normal ETT done here) - Central Nervous System Hx Back Pain: No (Gout) Hx Psychiatric Problems: No - Gastrointestinal Hx Gastroesophageal Reflux Disease: Yes (With tomatoes) - Endocrine Hx End Stage Renal Disease: No - Hematic Hx Anemia: No Hx Sickle Cell Disease: No - Other Systems Hx Alcohol Use: Yes (CONYAC 3XW) Hx Substance Use: No Hx Cancer: Yes (Prostate)
[2021-11-27] MEDS ORDERED: CELECOXIB 200 MG CAP PO NR (06:00)
[2021-11-27] MEDS ORDERED: MIDAZOLAM 2 MG/2 ML INJ IV NR (06:00)
[2021-11-27] MEDS ORDERED: fentaNYL 100 MCG/2 ML INJ IV ONE (06:00)
[2021-11-27] MEDS ORDERED: ACETAMINOPHEN 500 MG TAB PO ONE (06:00)
[2021-11-27] MEDS ORDERED: GABAPENTIN 300 MG CAP PO NR (06:00)
[2021-11-27] MEDS ORDERED: MAGNESIUM OXIDE 400 MG TAB PO ONE (06:00)
[2021-11-27] MEDS: LACTATED RINGERS 1,000 ML IV SCH ×2 (06:30→21:12)
--- NOTE | 2021-11-27 06:58 | Anesthesia Day of Surgery ---
Anesthesia Day of Surgery - Day of Surgery Patient Examined: Yes Patient H&P Reviewed: Yes Patient is NPO: Yes
[2021-11-27] MEDS ORDERED: dexAMETHasone 20 MG/5 ML VIAL ONE (07:01)
[2021-11-27] MEDS ORDERED: LIDOCAINE (1%) 10 MG/1 ML VIAL 20 ML MDV ONE (07:01)
[2021-11-27] MEDS ORDERED: BUPIVACAINE-EPINEPHRINE/PF 0.25%-1:200,000 (30 ML) VIAL INFILTRATI ONE (07:01)
[2021-11-27] MEDS ORDERED: propofoL 200 MG/20 ML VIAL IV ONE (07:15)
[2021-11-27] MEDS ORDERED: LIDOCAINE MPF (2%) 20 MG/1 ML VIAL 5 ML ONE (07:15)
[2021-11-27] MEDS ORDERED: METHYLENE BLUE 50 MG/10 ML AMP ONE (07:27)
[2021-11-27] MEDS ORDERED: THROMBIN (RECOMBINANT) 5,000 UNIT VIAL TP ONE ×2 (07:27→10:30)
[2021-11-27] MEDS ORDERED: ceFAZolin/Water 2 GM/20 ML 2 GM/20 ML SYRINGE IV ONE (07:27)
[2021-11-27] MEDS ORDERED: CITRIC ACID-SOD CITRATE 500 ML IV ONE (07:27)
[2021-11-27] MEDS ORDERED: CALCIUM CHLORIDE 1,000 MG/10 ML SYRINGE IV ONE ×2 (07:27→10:30)
[2021-11-27] MEDS ORDERED: KETAMINE/STERILE WATER 50 MG/ML SYRINGE ONE (07:29)
[2021-11-27] MEDS ORDERED: SUGAMMADEX SODIUM 200 MG/2 ML VIAL IV ONE (07:30)
[2021-11-27] MEDS ORDERED: HYDROmorphone 1 MG/1 ML INJ IV PRN (07:31)
[2021-11-27] MEDS ORDERED: ONDANSETRON 4 MG/2 ML INJ IV PRN ×2 (07:31→10:28)
[2021-11-27] MEDS ORDERED: ROCURONIUM 50 MG/5 ML INJ IV ONE (08:28)
[2021-11-27] MEDS ORDERED: ONDANSETRON 4 MG/2 ML INJ ONE (08:28)
[2021-11-27] MEDS ORDERED: ePHEDrine SULFATE 50 MG/1 ML INJ ONE (08:36)
[2021-11-27] MEDS ORDERED: ceFAZolin/Water 2 GM/20 ML 2 GM/20 ML SYRINGE IV NR (10:00)
[2021-11-27] MEDS ORDERED: HYDROmorphone 1 MG/1 ML INJ ONE (10:07)
[2021-11-27] MEDS ORDERED: HYDROcodone/ACETAMINOPHEN 5-325 MG TAB PO PRN (10:28)
[2021-11-27] MEDS ORDERED: ZOLPIDEM 5 MG TAB PO PRN (10:28)
[2021-11-27] MEDS ORDERED: NALOXONE 0.4 MG/1 ML INJ IV PRN (10:28)
[2021-11-27] MEDS ORDERED: ACETAMINOPHEN 325 MG TAB PO PRN (10:28)
--- NOTE | 2021-11-27 10:28 | Short Stay Summary ---
Short Stay Documentation Date of service: 11/27/21 - History H&P: obtained from office - Allergies and Medications Current Medications: Allergies No Known Allergies Allergy (Unverified 03/08/15 11:59) Home Medications Medication Instructions Recorded Confirmed Last Taken Type amLODIPine 10 mg PO DAILY #30 tab 07/11/19 11/20/21 Unknown Rx lisinopriL [Zestril TAB] 20 mg PO QDAY #30 tablet 07/11/19 11/20/21 Unknown Rx Active Medications Celecoxib (Celecoxib 200 Mg Cap) 400 mg PO PREOP NR Stop: 12/08/21 23:59 Last Admin: 11/27/21 06:50 Dose: 400 mg Gabapentin (Gabapentin 300 Mg Cap) 300 mg PO PREOP NR Stop: 11/27/21 23:59 Last Admin: 11/27/21 06:50 Dose: 300 mg Hydromorphone HCl (Hydromorphone 1 Mg/1 Ml Inj) 0.5 mg IV Q10MIN PRN PRN Reason: Pain , Severe (7-10) Stop: 11/27/21 20:00 Lactated Ringer's (Lactated Ringers) 1,000 mls @ 125 mls/hr IV DIRECT EMIL Last Admin: 11/27/21 06:30 Dose: 125 mls/hr Ondansetron HCl (Ondansetron 4 Mg/2 Ml Inj) 4 mg IV ONCE PRN PRN Reason: Nausea And Vomiting Stop: 11/27/21 16:00 - Brief post op/procedure progress note Date of procedure: 11/20/21 Pre-op diagnosis: prostate cancer Post-op diagnosis: same Procedure: robotic prostatectomy + stem cells Anesthesia: GETA Surgeon: KATIA LUNDBERG Estimated blood loss: other (200cc) Pathology: list (prostate) Specimen disposition: to lab Condition: other - Hospital course Hospital course: pt has pain meds & abx post op info on chart removed manjit - Disposition Condition at discharge: Stable Disposition: 01 HOME / SELF CARE / HOMELESS Short Stay Discharge Plan Follow up with: KIRSTEN RAM MD [Primary Care Provider] - 7 Days
[2021-11-27] MEDS ORDERED: WATER FOR IRRIG STERILE 1,500 ML BOTTLE IR ONE (10:30)
[2021-11-27] MEDS ORDERED: CITRIC ACID-SOD CITRATE SOLN 500 ML IV SOLN IV ONE (10:30)
--- NOTE | 2021-11-27 10:44 | Consultation ---
History of Present Illness - Reason for Consult Consult date: 11/27/21 Medical management Requesting physician: KATIA ALBARRAN - History of Present Illness 61 YO Male with HTN, Nicotine Dependence, Migraine JARVIS, CaP admitted for Prostate Surgery. Consult Placed by Dr. Albarran for Medical Management. Patient seen and evaluated in his room. Patient resting comfortably. Patient denies fever, chills, chest pain, palpitation, productive cough, skin rash, recent contact, known exposure to COVID-19. Past History Past Medical History: cancer Past Surgical History: Other (Prostatectomy) Social history: single Family history: hypertension Medications and Allergies Allergies Allergy/AdvReac Type Severity Reaction Status Date / Time No Known Allergies Allergy Unverified 03/08/15 11:59 Home Medications Medication Instructions Recorded Confirmed Last Taken Type amLODIPine 10 mg PO DAILY #30 tab 07/11/19 11/20/21 Unknown Rx lisinopriL [Zestril TAB] 20 mg PO QDAY #30 tablet 07/11/19 11/20/21 Unknown Rx Active Meds: Active Medications Acetaminophen (Acetaminophen 325 Mg Tab) 650 mg PO Q4H PRN PRN Reason: Pain, Mild (1-3)/Fever > 100.5 Hydrocodone Bitart/Acetaminophen (Hydrocodone/Acetaminophen 5-325 Mg Tab) 2 each PO Q4H PRN PRN Reason: Pain, Moderate (4-6) Amlodipine Besylate (Amlodipine 10 Mg Tab) 10 mg PO DAILY EMIL Celecoxib (Celecoxib 200 Mg Cap) 400 mg PO PREOP NR Stop: 12/08/21 23:59 Last Admin: 11/27/21 06:50 Dose: 400 mg Gabapentin (Gabapentin 300 Mg Cap) 300 mg PO PREOP NR Stop: 11/27/21 23:59 Last Admin: 11/27/21 06:50 Dose: 300 mg Hydromorphone HCl (Hydromorphone 1 Mg/1 Ml Inj) 0.5 mg IV Q10MIN PRN PRN Reason: Pain , Severe (7-10) Stop: 11/27/21 20:00 Lactated Ringer's (Lactated Ringers) 1,000 mls @ 125 mls/hr IV DIRECT EMIL Last Admin: 11/27/21 06:30 Dose: 125 mls/hr Cefazolin Sodium (Ancef/Ns 1 Gm/50 Ml) 1 gm in 50 mls @ 100 mls/hr IV Q8H EMIL; Protocol Stop: 11/27/21 19:29 Lactated Ringer's (Lactated Ringers) 1,000 mls @ 125 mls/hr IV DIRECT EMIL Lisinopril (Lisinopril 20 Mg Tab) 20 mg PO QDAY EMIL Morphine Sulfate (Morphine 4 Mg/1 Ml Inj) 4 mg IV Q4H PRN PRN Reason: Pain , Severe (7-10) Naloxone HCl (Naloxone 0.4 Mg/1 Ml Inj) 0.1 mg IV Q2MIN PRN PRN Reason: Res Rate </= 8 or 02 SAT < 92% Ondansetron HCl (Ondansetron 4 Mg/2 Ml Inj) 4 mg IV ONCE PRN PRN Reason: Nausea And Vomiting Stop: 11/27/21 16:00 Ondansetron HCl (Ondansetron 4 Mg/2 Ml Inj) 4 mg IV Q8H PRN PRN Reason: Nausea And Vomiting Zolpidem Tartrate (Zolpidem 5 Mg Tab) 5 mg PO QHS PRN PRN Reason: Sleep Review of Systems Constitutional: no weight loss, no chills Ears, nose, mouth and throat: no ear pain, no tinnitis Cardiovascular: no chest pain, no orthopnea, no rapid/irregular heart beat, no syncope Respiratory: no cough, no excessive sputum, no shortness of breath, no dyspnea on exertion Gastrointestinal: no vomiting, no constipation, no hematemesis Genitourinary Male: no hematuria, no flank pain, no urinary frequency, no urinary hesitancy Rectal: no pain Musculoskeletal: no neck stiffness, no shooting arm pain, no arm numbness/tingling, no leg numbness/tingling Integumentary: no rash, no pruritis, no sores, no jaundice Neurological: no head injury, no paralysis, no parathesias, no seizures Psychiatric: no anxiety, no change in sleep habits, no suicidal ideation Endocrine: no cold intolerance, no polyuria, no nocturia, no weight change Hematologic/Lymphatic: no easy bleeding Allergic/Immunologic: no urticaria, no allergic rhinitis, no wheezing Exam - Constitutional Vitals: Temp Pulse Resp BP Pulse Ox 98.3 F 59 L 18 136/47 97 11/27/21 06:45 11/27/21 07:45 11/27/21 07:55 11/27/21 07:45 11/27/21 07:45 General appearance: Present: no acute distress, well-nourished - EENT Eyes: Present: PERRL ENT: hearing intact, clear oral mucosa - Neck Neck: Present: supple, normal ROM - Respiratory Respiratory effort: normal Respiratory: bilateral: CTA - Cardiovascular Heart Sounds: Present: S1 & S2. Absent: rub, click - Extremities Extremities: pulses symmetrical, No edema Peripheral Pulses: within normal limits - Abdominal General gastrointestinal: Present: soft, non-tender, non-distended, normal bowel sounds Male genitourinary: Present: normal - Integumentary Integumentary: Present: clear, warm, dry - Musculoskeletal Musculoskeletal: gait normal, strength equal bilaterally - Psychiatric Psychiatric: appropriate mood/affect, intact judgment & insight - Neurologic Neurologic: CNII-XII intact, moves all extremities Results - Labs CBC & Chem 7: 11/22/21 00:01 11/22/21 00:01 Assessment and Plan - Patient Problems (1) Hypertension Current Visit: Yes Status: Acute Qualifiers: Hypertension type: primary hypertension Qualified Code(s): I10 - Essential (primary) hypertension Plan to address problem: Monitor blood pressure every shift, continue medical management. (2) Nicotine dependence Current Visit: Yes Status: Acute Qualifiers: Nicotine product type: cigarettes Substance use status: in withdrawal Qualified Code(s): F17.213 - Nicotine dependence, cigarettes, with withdrawal Plan to address problem: Smoking cessation counseling, supportive care, behavior change counseling, +15 minutes. (3) Prostate cancer Current Visit: Yes Status: Acute Plan to address problem: Prostatectomy as per urology team, supportive care. (4) Advance care planning Current Visit: Yes Status: Acute Plan to address problem: Disease education conducted, care plan discussed, diagnoses discussed, prognosis discussed, patient is full code. Patient acknowledges understanding and agreement with care plan, +30 minutes.
[2021-11-27] MEDS ORDERED: LACTATED RINGERS 1,000 ML IV SCH (11:00)
--- NOTE | 2021-11-27 12:20 | Operative Report ---
DATE OF SURGERY: 11/27/2021 PREOPERATIVE DIAGNOSIS: Prostate cancer. POSTOPERATIVE DIAGNOSIS: Prostate cancer. PROCEDURES: Robotic-assisted laparoscopic prostatectomy, bladder neck suspension, stem cell implant. SURGEON: Maik Albarran MD ANESTHESIA: General. ESTIMATED BLOOD LOSS: 200 mL. FLUIDS: Crystalloid. PIG MACHINE OPERATOR HELPER: Cathryn Lux. COMPLICATIONS: No complications. INDICATIONS: This 61-year-old gentleman seen in the office for an elevated PSA of 5.7. He underwent transrectal ultrasound and biopsies of prostate, was found to have Brittani 3+4 in 4 of 12 cores. Bone scan, CT scan note metastasis (stage II). Discussed options, he agreed to proceed with surgical intervention. Risks, benefits, and complications were explained. DESCRIPTION OF PROCEDURE: The patient was taken to the operative suite, placed in a supine position. After adequate general anesthesia, placed in modified dorsal lithotomy position, prepped and draped in a sterile fashion. Russell catheter was placed on the operative field. Pubic symphysis was marked in the midline. A 1 cm supraumbilical incision was made with a Bovie. Towel clips were placed, anterior traction was applied. A Veress needle was used. A drop test was negative. Opening pressure 1 mL of CO2. Insufflation to 15 cm of water was performed, 15 cm cephalad to pubic symphysis was marked in the midline, 9 cm lateral and additional 9 cm lateral was used to place the robotic ports under direct vision; 8 mm robotic ports were placed on the left side, one 8 mm port on the right, a 10 mm helper and a 5 mm helper port was placed on the right. The 0-degree lens was placed through the supraumbilical incision under direct vision, that was done first. No signs of injury or metastasis could be appreciated. All the other ports were placed under direct vision. The patient was placed in exaggerated dorsal lithotomy position. Robotic cart was docked between the legs. Second arch was identified and scored posterior to the prostate and bladder, seminal vesicles and vas deferens were dissected out. Dissection was taken to the apex of the prostate as well. The seminal vesicles were transected bilaterally. Attention was then taken to the lateral umbilical ligament, which was scored and then across the midline to allow the bladder flap mobilization. Dorsal vein complex was controlled with 60 mm vascular stapler. The endopelvic fascia was opened bilaterally. Anterior bladder neck was dissected exposing the Russell catheter. It was deflated and used for anterior traction. Posterior bladder neck was transected as well, exposing the seminal vesicles and vas deferens, which was pulled anteriorly, which exposed the lateral pedicles. The left lateral pedicle was dissected in athermal fashion using the leatha, occasional cautery for tedious bleeding. In the right side, there was a fair amount of bleeding and therefore a 60 mm vascular stapler was used to control the lateral pedicle on the right side. The apex of the prostate was transected anteriorly exposing the Russell and then pulled back in the posterior transection as well. Dissection of the prostate was performed. It was placed in the EndoCatch bag without difficulty. Copious irrigation was performed. Adequate hemostasis was achieved. Neurovascular bundle could be appreciated on the left side. A 2-0 Vicryl was placed at the 12 o'clock position of the bladder neck to aid with manipulation. The bladder neck was reconstructed using 2-0 Vicryl at the 5 o'clock and 7 o'clock positions to allow insertion of 18-Sinhala Russell catheter. A 2 x 2 cm stem cell graft was placed on the anterior aspect of the rectum adjacent to the urethra. The double-armed V-Loc stitch was placed at the 12 o'clock position of the bladder neck and the corresponding aspect of the urethra, incorporating the stem cell graft into the anastomosis. Running stitch was performed bilaterally. Russell catheter was inserted. A new 18-Sinhala Russell catheter was inserted without difficulty, inflated and irrigated clear. No clots. The double-armed V-Loc was then placed. A stitch was placed in the posterior aspect of the pubic rami for a bladder suspension. Pine were cut and removed. Platelet-rich plasma and platelet-poor plasma was injected around the urethra along with a platelet membrane. A 10 mm Reese-Kaur drain was brought out through the left-sided port, tied in the skin with 2-0 silk. The robotic cart was removed. The patient was placed in a supine position. The supraumbilical incision was extended to allow removal of the prostate via the EndoCatch bag. The 0 Vicryl [id number] stitches were used to close the supraumbilical incision. The rest of the ports were closed with 2-0 Vicryl in an interrupted fashion. Reese-Kaur drain was secured with 2-0 silk. Russell catheter sideport was folded over and tied with 0 silk in interrupted fashion. Cathryn Lux was at the bedside to assist throughout the procedure. The patient tolerated the procedure well and was extubated and taken to recovery room. He will be observed overnight. He will go home on Bactrim and [place]. TID: [id number] RECEIPT: [id number] [facility]ILL[facility] MTDD
[2021-11-27] MEDS ORDERED: SODIUM CHLORIDE 0.9% 1000 ML 1,000 ML ONE (12:47)
--- NOTE | 2021-11-27 15:56 | Post Anesthesia Evaluation ---
- Post Anesthesia Evaluation Patient Participated: Yes Airway Patent: Yes Stable Respiratory Function: Yes Nausea/Vomiting: No Temp > 96.8F: Yes Pain Manageable: Yes Adequeate Hydration: Yes Anesthesia Complications: No Other Comments: OK for transfer to floor pending bed availability.
[2021-11-27] MEDS: ceFAZolin/NS 1 GM/50 ML 1 GM/50 ML BAG IV SCH ×2 (16:00→23:50)
[2021-11-27] MEDS: MORPHINE 4 MG/1 ML INJ IV PRN (20:32)
[2021-11-28] MEDS: MORPHINE 4 MG/1 ML INJ IV PRN ×2 (01:23→09:51)
[2021-11-28] MEDS: LACTATED RINGERS 1,000 ML IV SCH (04:12)
[2021-11-28 09:25] VITALS: BP 137/69
[2021-11-28] MEDS ORDERED: amLODIPine 10 MG TAB PO SCH (10:00)
[2021-11-28] MEDS ORDERED: LISINOPRIL 20 MG TAB PO SCH (10:00)
--- NOTE | 2021-11-28 20:46 | Progress Note ---
Assessment and Plan - Patient Problems (1) Hypertension Current Visit: Yes Status: Acute Qualifiers: Hypertension type: primary hypertension Qualified Code(s): I10 - Essential (primary) hypertension (2) Nicotine dependence Current Visit: Yes Status: Acute Qualifiers: Nicotine product type: cigarettes Substance use status: in withdrawal Qualified Code(s): F17.213 - Nicotine dependence, cigarettes, with withdrawal (3) Prostate cancer Current Visit: Yes Status: Acute (4) Advance care planning Current Visit: Yes Status: Acute Hospitalist Physical - Constitutional Vitals: Temp Pulse Resp BP Pulse Ox 99.2 F 66 18 137/69 97 11/28/21 07:59 11/28/21 09:46 11/28/21 11:00 11/28/21 09:46 11/28/21 11:00 General appearance: Present: no acute distress, well-nourished Results - Labs CBC & Chem 7: 11/22/21 00:01 11/22/21 00:01 Labs: Laboratory Last Values WBC 7.2 K/mm3 (4.5-11.0) 11/22/21 00:01 RBC 4.85 M/mm3 (3.65-5.03) 11/22/21 00:01 Hgb 14.4 gm/dl (11.8-15.2) 11/22/21 00:01 Hct 43.8 % (35.5-45.6) 11/22/21 00:01 MCV 90 fl (84-94) 11/22/21 00:01 MCH 30 pg (28-32) 11/22/21 00:01 MCHC 33 % (32-34) 11/22/21 00:01 RDW 15.3 % (13.2-15.2) H 11/22/21 00:01 Plt Count 233 K/mm3 (140-440) 11/22/21 00:01 Sodium 142 mmol/L (137-145) 11/22/21 00:01 Potassium 3.7 mmol/L (3.6-5.0) 11/22/21 00:01 Chloride 108.3 mmol/L (98-107) H 11/22/21 00:01 Carbon Dioxide 21 mmol/L (22-30) L 11/22/21 00:01 Anion Gap 16 mmol/L 11/22/21 00:01 BUN 22 mg/dL (9-20) H 11/22/21 00:01 Creatinine 1.4 mg/dL (0.8-1.3) H 11/22/21 00:01 Estimated GFR > 60 ml/min 11/22/21 00:01 BUN/Creatinine Ratio 16 % 11/22/21 00:01 Glucose 107 mg/dL (75-100) H 11/22/21 00:01 Calcium 8.9 mg/dL (8.4-10.2) 11/22/21 00:01 Total Bilirubin 0.30 mg/dL (0.1-1.2) 11/22/21 00:01 AST 20 units/L (5-40) 11/22/21 00:01 ALT 30 units/L (7-56) 11/22/21 00:01 Alkaline Phosphatase 141 units/L (35-129) H 11/22/21 00:01 Total Protein 7.5 g/dL (6.3-8.2) 11/22/21 00:01 Albumin 4.2 g/dL (3.9-5) 11/22/21 00:01 Albumin/Globulin Ratio 1.3 % 11/22/21 00:01 SARS-CoV-2 (PCR) Negative (Negative) 11/22/21 12:00 Blood Type A POSITIVE 11/27/21 06:30 Antibody Screen Negative 11/27/21 06:30 Russell/IV: Voiding Method Indwelling Catheter Active Medications - Current Medications Current Medications: Generic Name Dose Route Start Last Admin Trade Name Freq PRN Reason Stop Dose Admin Acetaminophen 650 mg 11/27/21 10:28 Acetaminophen 325 Mg Tab PO Q4H PRN Pain, Mild (1-3)/Fever > 100.5 Hydrocodone Bitart/Acetaminophen 2 each 11/27/21 10:28 Hydrocodone/Acetaminophen 5-325 Mg Tab PO Q4H PRN Pain, Moderate (4-6) Amlodipine Besylate 10 mg 11/28/21 10:00 11/28/21 09:46 Amlodipine 10 Mg Tab PO 10 mg DAILY EMIL Administration Celecoxib 400 mg 11/27/21 06:00 11/27/21 06:50 Celecoxib 200 Mg Cap PO 12/08/21 23:59 400 mg PREOP NR Administration Lactated Ringer's 1,000 mls @ 125 mls/hr 11/27/21 06:00 11/28/21 04:12 Lactated Ringers IV 125 mls/hr DIRECT EMIL Administration Lisinopril 20 mg 11/28/21 10:00 11/28/21 09:47 Lisinopril 20 Mg Tab PO 20 mg QDAY EMIL Administration Morphine Sulfate 4 mg 11/27/21 10:28 11/28/21 09:51 Morphine 4 Mg/1 Ml Inj IV 4 mg Q4H PRN Administration Pain , Severe (7-10) Naloxone HCl 0.1 mg 11/27/21 10:28 Naloxone 0.4 Mg/1 Ml Inj IV Q2MIN PRN Res Rate </= 8 or 02 SAT < 92% Ondansetron HCl 4 mg 11/27/21 10:28 Ondansetron 4 Mg/2 Ml Inj IV Q8H PRN Nausea And Vomiting Zolpidem Tartrate 5 mg 11/27/21 10:28 Zolpidem 5 Mg Tab PO QHS PRN Sleep
== END 2021-11-28 16:00 | disposition home or self-care (01) ==
LOC: OR 05:44 → EDSTATUS 08:00 → 3A 10:28 → 4A 19:20
PROVIDERS: ADMIT Urology; ATTEND Urology
DX: C61 Malignant neoplasm of prostate (principal); Z20.822 Contact with and (suspected) exposure to COVID-19; I10 Essential (primary) hypertension; F17.213 Nicotine dependence, cigarettes, with withdrawal; Z79.899 Other long term (current) drug therapy; Z98.890 Other specified postprocedural states
CPT/HCPCS: 36415; 55866; 64488; 80053; 85027; 86850; 86900; 86901; 88309; 96365; 96375; 96376; G0378; J0690; J1100; J1170; J2250; J2270; J2405; J2704; J3010; J3490; J7030; J7120; Q4140; S2900; U0003; 64450; Q0162; Q9968